=== PATIENT | female | born 1940 | race Caucasian/White ===

== ENCOUNTER 2018-06-13 11:28 | Inpatient (IN) | payer OTHER, MEDICARE ==
[~2018-06-13] VITALS: Ht 167.6 cm; Wt 80.1 kg
--- NOTE | 2018-06-13 11:41 | ED GENERAL ADULT ---
History of Present Illness General Chief Complaint: Palpitations Stated Complaint: RAPID AFIB Source: patient, EMS Exam Limitations: no limitations Vital Signs & Intake/Output Vital Signs & Intake/Output Vital Signs Date Time Temp Pulse Resp B/P B/P Pulse O2 O2 Flow FiO2 Mean Ox Delivery Rate 06/13 1156 97 Room Air Room Air 06/13 1149 98.1 06/13 1149 119 20 166/98 06/13 1135 119 20 166/98 97 Room Air Allergies Coded Allergies: No Known Allergies (06/13/18) Reconcile Medications Apixaban (Eliquis) 5 MG TABLET 1 TAB PO BID BLOOD THINNER (Reported) Cholecalciferol (Vitamin D3) 1,000 UNIT TABLET 1 TAB PO DAILY VITAMIN SUPPORT (Reported) Diltiazem HCl (Diltiazem 24HR ER) 240 MG CAP.ER.24H 1 CAP PO DAILY HEART ( Reported) Latanoprost 0.005 % DROPS 1 GTT OPH QPM EYE PROBLEMS (Reported) Triage Note: PT BIBA FROM HOME WHERE SHE FELT TIGHTNESS IN CHEST, RADIATING TO NECK. HX OF SAME WITH ONE CARDIOVERSION A YEAR AGO. PT DENIES CP, STATES TIGHTNESS. 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 DR MATOS AT BEDSIDE FOR EVALUATION Triage Nurses Notes Reviewed? yes HPI: Patient is a 77-year-old female with past medical history of paroxysmal atrial fibrillation status post cardioversion one year ago followed by Dr. Kahn from cardiology who presents today via EMS with repeat episode of atrial fibrillation with RVR. EMS obtained a cardiogram which confirmed this diagnosis this morning and administered intravenous metoprolol in route to the hospital, as they have no more diltiazem secondary to a national shortage. The patient is on diltiazem daily at home, recently increased to 240 mg daily. She reports some chest pressure at present. Heart rate between 100 - 120. Past History Travel History Traveled to [place] past 21 day No Medical History Any Pertinent Medical History? see below for history EENT: glaucoma Cardiovascular: A-FIB Musculoskeletal: osteoarthritis Surgical History Surgical History: non-contributory Psychosocial History What is your primary language Bulgarian Tobacco Use: Never used ETOH Use: occasional use Illicit Drug Use: denies illicit drug use Family History Hx Contributory? Yes Review of Systems Review of Systems Constitutional: Reports: see HPI. Denies: chills, diaphoresis, fever, malaise, weakness. EENTM: Reports: no symptoms. Respiratory: Reports: short of breath. Denies: cough, hemoptysis, orthopnea. Cardiovascular: Reports: chest pain. GI: Denies: nausea. Genitourinary: Reports: no symptoms. Musculoskeletal: Reports: no symptoms. Skin: Reports: no symptoms. Neurological/Psychological: Reports: no symptoms. Hematologic/Endocrine: Reports: no symptoms. Immunologic/Allergic: Reports: no symptoms. All Other Systems: Reviewed and Negative Physical Exam Physical Exam General Appearance: well developed/nourished, no apparent distress, alert, awake , anxious Comments: HEENT: Inspection of the head reveals a normocephalic cranium with no signs of trauma. Ophtho: Extraocular muscles are intact and pupils are equal and reactive to light bilaterally with no afferent pupillary defect. The sclera are noninjected , and there is no obvious discharge. Neck: The trachea is midline, there is no obvious asymmetry or mass over the thyroid, and there is no midline cervical spine tenderness Respiratory: The lungs are clear and equal to auscultation bilaterally without wheezes, rales, or rhonchi. The patient exhibits no signs of labored breathing. Cardiac: Irregularly irregular but without appreciable murmurs on auscultation. No obvious JVD. GI: Examination of the abdomen reveals no significant focal tenderness in any of the four quadrants. There is negative Roy's sign, negative McBurney's point tenderness, negative Esvin sign, negative Stout-Smith sign, and no signs of peritonitis whatsoever on percussion or deep palpation. The skin is intact with no sign of trauma or infection. : Deferred Neuro: The patient is oriented to person, place, time, and situation, with no obvious focal motor deficits. There were no sensory deficits, and the patient exhibit purposeful movement of all 4 extremities. Cranial nerves II through XII are intact, and gait is normal. Behavioral: Calm and cooperative Dermatologic: Dermatologic examination reveals no diffuse rashes or exanthems, no petechiae, no ecchymoses, and no other signs of erythema or infection. Core Measures ACS in differential dx? Yes CVA/TIA Diagnosis: No Sepsis Present: No Sepsis Focused Exam Completed? No Progress Differential Diagnoses I considered the following diagnoses in my evaluation of the patient: Paroxysmal atrial fibrillation, underlying acute coronary syndrome, holiday heart, electrolyte abnormality, hypercalcemia renal failure, multiple other metabolic or cardiac abnormalities possible Plan of Care: Orders Procedure Date/time Status PARTIAL THROMBOPLASTIN TIME 06/13 UNK Complete PROTHROMBIN TIME 06/13 UNK Complete Heart Healthy Diet 06/13 D Active ED Holding Orders 06/13 1427 Active Admit to inpatient 06/13 1427 Active Code Status 06/13 1427 Active Add-on Test (ER Only) 06/13 1224 Active TROPONIN LEVEL 06/13 1139 Complete COMPREHENSIVE METABOLIC PANEL 06/13 1139 Complete CBC WITHOUT DIFFERENTIAL 06/13 1139 Complete EKG 06/13 1129 Active Laboratory Tests 06/13/18 1214: Anion Gap 17 H, Estimated GFR > 60, BUN/Creatinine Ratio 43.3 H, Glucose 125 H, Calcium 10.7 H, Total Bilirubin 0.7, AST 26, ALT 25, Alkaline Phosphatase 100, Troponin I < 0.01, Total Protein 7.1, Albumin 4.8, Globulin 2.3, Albumin/ Globulin Ratio 2.1, CBC w Diff MAN DIFF ORDERED, RBC 5.25, MCV 89.4, MCH 29.9, MCHC 33.4, RDW 13.4, MPV 10.0, Gran % 56.1, Lymphocytes % 37.3, Monocytes % 5.7, Eosinophils % 0.1, Basophils % 0.8, Absolute Granulocytes 14.5 H, Absolute Lymphocytes 9.7 H, Absolute Monocytes 1.5 H, Absolute Eosinophils 0, Absolute Basophils 0.2, Platelet Estimate ADEQUATE, Normocytic RBCs VERIFIED, Normochromic RBCs VERIFIED 06/13/18 1000: PT 14.0 H, INR 1.28 H, APTT 32 Initial ED EKG: Initial ECG performed at 1134 hrs, interpreted at 1140 hrs. Atrial fibrillation with rapid ventricular rate varying between 73 and 106, average of 115. Frequent ectopy and PVCs. As compared to prior study from 07/2016, there is interval change to atrial for ablation from prior sinus rhythm. No obvious ischemic changes. Comments: Patient with history of paroxysmal atrial fibrillation requiring prior to cardioversion one year ago presented today in RVR again read she responded to a dosage of intravenous metoprolol and required further rate control here in the emergency department. She did not cardiovert spontaneously, and had a negative chest x-ray and troponin. Given her poor rate control and her ongoing symptoms, I feel that hospitalization is warranted. PATIENT: ADRIÁN DAVIS PRESENT AGE: 77 PATIENT ACCOUNT NO: [id number] : 38 LOCATION: [facility] ORDERING PHYSICIAN: Alex Matos DO SERVICE DATE: 06/13/18 EXAM TYPE: RAD - XRY-CHEST XRAY, TWO VIEWS EXAMINATION: XR CHEST CLINICAL INFORMATION: Chest pressure. Atrial fibrillation. COMPARISON: None TECHNIQUE: 2 views of the chest were obtained. FINDINGS: The cardiomediastinal silhouette is enlarged. Ectasia and tortuosity of the aorta is seen. Lungs bilaterally are symmetrically expanded. There is slight thickening of the central airways. No focal consolidation, effusion or pneumothorax is seen. Bony structures are unremarkable. IMPRESSION: 1. Enlarged cardiac mediastinal silhouette and ectatic aorta. 2. Slight thickening of the central airways. Findings may be related to reactive airways disease or bronchitis. 3. No focal pneumonia. DICTATED BY: Aby Barrientos MD DATE/TIME DICTATED:06/13/181242 HIDE CLEANER:JAG DATE/TIME TRANSCRIBED:06/13/181242 CONFIDENTIAL, DO NOT COPY WITHOUT APPROPRIATE AUTHORIZATION. <Electronically signed in Other Vendor System> SIGNED BY: Aby Barrientos MD 1248 Departure Departure Time of Disposition: 5 Disposition: STILL A PATIENT Condition: Stable Clinical Impression Primary Impression: Paroxysmal atrial fibrillation with RVR Departure Forms: Customer Survey General Discharge Information Admission Note Spoke With: Solo Degroot MD Documentation of Exam: Documentation of any treatments & extenuating circumstances including Concerns Regarding Discharge (functional status, medication knowledge or non-compliance, living conditions, etc.) that warrant an admission rather than observation: Patient presented today with interpretation with RVR. Attempts at rate control were somewhat successful but I feel that the patient will require further intravenous medication for further rate control. She may require electrical cardioversion as well after cardiology consultation. Furthermore, she has pronounced leukocytosis which is as of yet unexplained and I feel that she may require IV antibiotics. For these reasons, discharge home is not a safe option and hospitalization is warranted. Critical Care Note Critical Care Note Critical Care Time: non-applicable
[2018-06-13 12:30] LABS: ABSOLUTE BASOPHIL COUNT 0.2 /CUMM (0.0-0.2); ABSOLUTE EOSINOPHIL COUNT 0 /CUMM (0.0-0.7); ABSOLUTE GRANULOCYTE CT 14.5 /CUMM (1.4-6.5); ABSOLUTE LYMPH COUNT 9.7 /CUMM (1.2-3.4); ABSOLUTE MONOCYTE COUNT 1.5 /CUMM (0.10-0.60); BASOPHIL % 0.8 % (0.0-2.0); EOSINOPHIL % 0.1 % (0-5); GRANULOCYTE % 56.1 % (42.2-75.2); HEMATOCRIT 46.9 % (37-47); MEAN CORPUSCULAR HGB 29.9 PG (27.0-31.0); MEAN CORPUSCULAR HGB CONC 33.4 G/DL (33.0-37.0); MEAN CORPUSCULAR VOLUME 89.4 FL (81.0-99.0); PLATELET COUNT 304 /CUMM (130-400); RBC DISTRIBUTION WIDTH 13.4 % (11.5-14.5); RED BLOOD CELL CT 5.25 /CUMM (4.20-5.40); WHITE BLOOD CELL COUNT 25.9 /CUMM (4.8-10.8)
[2018-06-13] MEDS ORDERED: ELIQUIS5 M1 PO (12:37)
[2018-06-13] MEDS ORDERED: LATANOPROST2.5 ML OPH (12:37)
[2018-06-13] MEDS ORDERED: DILTIAZEM 24HR240 MG PO (12:37)
[2018-06-13] MEDS ORDERED: VITAMIN D31000 UNI2 PO (12:38)
--- NOTE | 2018-06-13 12:49 | RADIOLOGY REPORT ---
EXAMINATION: XR CHEST CLINICAL INFORMATION: Chest pressure. Atrial fibrillation. COMPARISON: None TECHNIQUE: 2 views of the chest were obtained. FINDINGS: The cardiomediastinal silhouette is enlarged. Ectasia and tortuosity of the aorta is seen. Lungs bilaterally are symmetrically expanded. There is slight thickening of the central airways. No focal consolidation, effusion or pneumothorax is seen. Bony structures are unremarkable. IMPRESSION: 1. Enlarged cardiac mediastinal silhouette and ectatic aorta. 2. Slight thickening of the central airways. Findings may be related to reactive airways disease or bronchitis. 3. No focal pneumonia.
[2018-06-13 12:59] LABS: PTT 32 SEC (25-37)
--- NOTE | 2018-06-13 14:53 | History & Physical ---
Faizan Macdonald MD 06/13/18 1452: General Information and HPI MD Statement: I have seen and personally examined ADRIÁN DAVIS and documented this H&P. The patient is a 77 year old F who presented with a patient stated chief complaint of abdominal and chest pain. Source of Information: patient, old records Exam Limitations: no limitations History of Present Illness: 77 year old female with past medical history significant for CLL and asymptomatic paroxysmal atrial fibrillation diagnosed in 09/2016 after routine evaluation for urinary tract infection s/p elective cardioversion in 10/2016 presents with complaints of abdominal bloating epigastric and chest tightness and was brought in by ambulance with rapid atrial fibrillation. The patient's symptoms started last night with bloating, feeling gaseous, like she need to belch. Her symptoms started abruptly, while at rest, sitting on the couch after dinner. She had difficulty describing the exact nature of the pain and denied any exacerbating or relieving factors. She did say that the pain was in her epigastric area radiating up through her chest into jaw and her back. She endorsed chest tightness, nausea, fatigue, and feeling light headed. She denied palpitations, vomiting, diaphoresis, or dyspnea. She slept poorly overnight and her symptoms persisted into this morning. She called her chain maker hand and had an appointment to be seen at 1PM, but her symptoms continued to worsen and she called an ambulance because she lives alone and felt scared. In the ambulance, she was noted to be in rapid atrial fibrillation and was given 10mg of IV metoprolol. Once in the ED, she was given an additional 50mg of oral metoprolol with an improved heart rate. Her first troponin was negative but she continued to feel unwell. She was admitted to telemetry for further monitoring of her tachycardia, ACS evaluation, cardiology consultation, and possible electrical cardioversion. The patient last saw Dr. Camacho on 05/25/18. He had increased her cardizem from 120mg to 240mg at that time and recommended cardioversion. She doesn't think she has ever had a stress test or a recent echocardiogram. She denied any history of previous heart attack. She says her thyroid function has always been normal. She denied a history of high blood pressure. She drinks 2 cups of tea daily and this has not changed recently and denies alcohol intake. She states a WBC in the 20,000 range is typical for her CLL. The patient states she has not had any fevers, chills, sick contacts, cough, sore throat, diarrhea, or dysuria, suggestive of infection. Review of systems is only notable other than previously mentioned for left knee pain from osteoarthritis. Allergies/Medications Allergies: Coded Allergies: No Known Allergies (06/13/18) Compliance With Home Meds: GOOD Past History Travel History Traveled to [place] past 21 day No Medical History EENT: glaucoma Cardiovascular: A-FIB Musculoskeletal: osteoarthritis Blood Disorders: CLL Cancer(s): CLL Surgical History Surgical History: D+C, bunionectomy, tonsillectomy Past Family/Social History Family History Relations & Conditions if any FATHER FH: renal cell carcinoma MOTHER FH: congestive heart failure FH: hearing loss BROTHER FH: gastric cancer FH: hearing loss Psychosocial History Primary Language: Moroccan Smoking Status: Never Smoked ETOH Use: denies use Illicit Drug Use: denies illicit drug use Functional Ability ADLs Independent: dressing, eating, toileting, bathing. Ambulation: independent IADLs Independent: shopping, housework, finances, food prep, telephone, transportation , medication admin. 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 Denies: chills, diaphoresis, fever. EENTM: Denies: nasal congestion, throat pain. Cardiovascular: Reports: chest pain. Denies: palpitations, peripheral edema. Respiratory: Denies: cough, short of breath, sputum production, wheezing. GI: Reports: abdominal pain, bloating, nausea. Denies: constipation, diarrhea, distention, melena, changes in stool, vomiting. Genitourinary: Denies: dysuria, frequency, pain. Musculoskeletal: Reports: joint pain. Skin: Reports: no symptoms. Neurological/Psychological: Reports: no symptoms. Hematologic/Endocrine: Reports: see HPI. Immunologic/Allergic: Reports: no symptoms. All Other Systems: Reviewed and Negative Exam & Diagnostic Data Last 24 Hrs of Vital Signs/I&O Vital Signs Date Time Temp Pulse Resp B/P B/P Pulse O2 O2 Flow FiO2 Mean Ox Delivery Rate 06/13 1525 97.8 88 18 164/90 95 Room Air 06/13 1156 97 Room Air Room Air 06/13 1149 98.1 06/13 1149 119 20 166/98 06/13 1135 119 20 166/98 97 Room Air Intake & Output 06/13 1600 06/13 0800 06/13 0000 Intake Total 1000 Output Total Balance 1000 Intake, IV 1000 Physical Exam General Appearance Alert, Oriented X3, Cooperative, No Acute Distress Cardiovascular No Murmurs, irregular rhythm Lungs Clear to Auscultation, Normal Air Movement Abdomen Normal Bowel Sounds, Soft, No Tenderness, No Masses Extremities No Clubbing, No Cyanosis, No Edema, Normal Pulses Last 24 Hrs of Labs/Julien: Laboratory Tests 06/13/18 1214: Anion Gap 17 H, Estimated GFR > 60, BUN/Creatinine Ratio 43.3 H, Glucose 125 H, Calcium 10.7 H, Total Bilirubin 0.7, AST 26, ALT 25, Alkaline Phosphatase 100, Troponin I < 0.01, Total Protein 7.1, Albumin 4.8, Globulin 2.3, Albumin/ Globulin Ratio 2.1, CBC w Diff MAN DIFF ORDERED, RBC 5.25, MCV 89.4, MCH 29.9, MCHC 33.4, RDW 13.4, MPV 10.0, Gran % 56.1, Lymphocytes % 37.3, Monocytes % 5.7, Eosinophils % 0.1, Basophils % 0.8, Absolute Granulocytes 14.5 H, Absolute Lymphocytes 9.7 H, Absolute Monocytes 1.5 H, Absolute Eosinophils 0, Absolute Basophils 0.2, Platelet Estimate ADEQUATE, Normocytic RBCs VERIFIED, Normochromic RBCs VERIFIED 06/13/18 1000: PT 14.0 H, INR 1.28 H, APTT 32 Diagnostic Data EKG Results irregular rhythm with PVCs, no ischemic changes Assessment/Plan Assessment: 77 year old female with PMH of CLL and paroxysmal atrial fibrillation previously cardioverted in 10/2016 presents with complaints of epigastric pain and chest tightness and admitted to telemetry for rapid atrial fibrillation. Atrial fibrillation with rapid ventricular response: HR 100s-130s in the ED Received IV metoprolol and 50mg PO metoprolol in the ED Monitor on telemetry Continue home medications of cardizem 240mg and eliquis 5mg po bid Cardiology consultation with Dr. Camacho's group Start metoprolol 50mg po bid for rate control Check TSHR NPO in AM for possible cardioversion Atypical chest pain: Check serial troponins/EKG to rule out acute coronary syndrome Tylenol and morphine prn for analgesia GI cocktail x 1 and zofran prn for nausea Consider echocardiogram to evaluate for regional wall motion abnormalities If troponins become abnormal, add high intensity statin and aspirin CLL: Monitor leukocytosis No evidence of infection, chest x-ray negative, no symptoms of infection ( dysuria/cough) Heart healthy diet, NPO in the morning DVT ppx-eliquis Full code As Ranked By This Provider Problem List: 1. Paroxysmal atrial fibrillation with RVR Core Measures/Misc (08/06) Acute Coronary Syndrome ACS Diagnosis: No Congestive Heart Failure Congestive Heart Failure Diagnosis No Cerebrovascular Accident CVA/TIA Diagnosis: No VTE (View Protocol) VTE Risk Factors Age>40 No Mechanical VTE Prophylaxis d/t N/A MechProphylax Ordered No VTE Pharm Prophylaxis d/t NA PharmProphylax ordered Sepsis (View protocol) Sepsis Present: No If YES complete Sepsis Event Note If YES complete Sepsis Event Note Rafal Pedroza 06/13/18 1545: General Information and HPI Allergies/Medications Home Med list Amiodarone (Cordarone) 200 MG TAB 1 TAB PO DAILY Atrial Fibrillation Apixaban (Eliquis) 5 MG TABLET 1 TAB PO BID BLOOD THINNER (Reported) Cholecalciferol (Vitamin D3) 1,000 UNIT TABLET 1 TAB PO DAILY VITAMIN SUPPORT (Reported) Diltiazem HCl (Diltiazem 24HR ER) 240 MG CAP.ER.24H 1 CAP PO DAILY HEART ( Reported) Latanoprost 0.005 % DROPS 1 GTT OPH QPM EYE PROBLEMS (Reported) Metoprolol Tartrate 25 MG TABLET 1 TAB PO BID Atrial Fibrillation Core Measures/Misc (08/06) Sepsis (View protocol) If YES complete Sepsis Event Note If YES complete Sepsis Event Note Attending MD Review Statement Attending Statement Attending MD Statement: examined this patient, discuss w/resident/PA/JAVA TECH LEAD, agreed w/resident/PA/JAVA TECH LEAD, reviewed EMR data (avail) Attending Assessment/Plan: 77 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 Pt got iv metoprolol on route by EMS and in ER was given another 50mg po metoprolol. Pt gives some history of epigastric area discomfort since last night but denies any chest pain or sob. No prior h/o cad or SD or stroke. Afib with RVR- we will monitor the pt on tele , pt already took her cardizem in am and was given 50mg po metoprolol in ER and iv metoprolol by EMS. her HR is ranging from 100-130 currently with few PVCs. Will get cardiology consult and see if she would need cardioversion. May keep her npo past mindnight in case she needs cardioversion. Epigastric discomfort- could be atypical presentation of coronary event. will do serial trop and monitor her on tele. d/w pt the care plan.
--- NOTE | 2018-06-13 15:43 | Admission Certification ---
Admission Certification Certification Statement - As attending physician, I certify that at the time of - admission, based on clinical presentation, severity of - symptoms, need for further diagnostic testing and - therapeutic interventions, and risk of adverse outcomes - without in-hospital treatment, in my clinical assessment, - this patient requires an acute hospital stay for a minimum - of two nights or longer. I have also considered psychsocial - factors such as support system, advanced age, financial - issues, cognitive issues, and failed out-patient treatments, - past re-admission history, safety of patient, and lack of - compliance as applicable. Specific rationale supporting this admission is: afib with RVR and chest/epigastric tightness
[2018-06-14 06:11] LABS: ABSOLUTE BASOPHIL COUNT 0.2 /CUMM (0.0-0.2); ABSOLUTE EOSINOPHIL COUNT 0.1 /CUMM (0.0-0.7); ABSOLUTE GRANULOCYTE CT 11.5 /CUMM (1.4-6.5); ABSOLUTE LYMPH COUNT 15.5 /CUMM (1.2-3.4); ABSOLUTE MONOCYTE COUNT 2.3 /CUMM (0.10-0.60); BASOPHIL % 0.7 % (0.0-2.0); EOSINOPHIL % 0.3 % (0-5); GRANULOCYTE % 38.8 % (42.2-75.2); MEAN CORPUSCULAR HGB 30.2 PG (27.0-31.0); MEAN CORPUSCULAR HGB CONC 32.9 G/DL (33.0-37.0); MEAN CORPUSCULAR VOLUME 91.6 FL (81.0-99.0); MEAN PLATELET VOLUME 9.6 FL (7.4-10.4); PLATELET COUNT 297 /CUMM (130-400); RBC DISTRIBUTION WIDTH 13.3 % (11.5-14.5); WHITE BLOOD CELL COUNT 29.5 /CUMM (4.8-10.8)
--- NOTE | 2018-06-14 07:12 | PN- Housestaff ---
Salas Nicole 06/14/18 0712: Subjective Follow-up For: Atrial fibrillation with RVR CLL with Leukocytosis Tele-Events Since Last Visit: a-Fib rates 80s-90s Subjective: Patient seen and examined at bedside this morning in the ER room 2. Patient is no longer n.p.o. S LISSA/cardioversion has been moved to tomorrow. Patient was able to eat breakfast with no significant complaints. However she noted that yesterday she had one episode of vomiting and one loose stool. Denies any chest pain, palpitations, shortness of breath, nausea, vomiting or abdominal pain today. Patient will have transthoracic echocardiogram today. We will continue to control rate and monitor patient. Review of Systems Constitutional: Denies: see HPI. Objective Last 24 Hrs of Vital Signs/I&O Vital Signs Date Time Temp Pulse Resp B/P B/P Pulse O2 O2 Flow FiO2 Mean Ox Delivery Rate 06/14 0920 97.9 82 20 136/56 06/14 0919 82 20 136/56 98 Room Air 06/14 0603 97.9 64 20 139/54 95 Room Air 06/13 2233 92 120/55 06/13 2112 99.0 92 20 120/55 91 Room Air 06/13 1906 97.8 60 18 140/82 98 Room Air 06/13 1525 97.8 88 18 164/90 95 Room Air 06/13 1156 97 Room Air Room Air 06/13 1149 98.1 06/13 1149 119 20 166/98 06/13 1135 119 20 166/98 97 Room Air Physical Exam General Appearance: Alert, Oriented X3, Cooperative, No Acute Distress Skin: No Rashes, No Breakdown HEENT: PERRLA, EOMI, Mucous Membr. moist/pink Cardiovascular: Regular Rate, Normal S1, Normal S2, irregular rythm with ventricular rate around 80;1/6 asystolic murmur Lungs: Clear to Auscultation, Normal Air Movement Abdomen: Normal Bowel Sounds, Soft, No Tenderness Neurological: Normal Speech, Strength at 5/5 X4 Ext, Normal Tone, Cranial Nerves 3-12 NL, Reflexes 2+ Extremities: No Clubbing, No Cyanosis Vascular: Normal Pulses, Pulses Symmetrical Current Medications: Current Medications Sig/Harjinder Start time Last Medication Dose Route Stop Time Status Admin Acetaminophen 650 MG Q6P PRN 06/13 1545 AC PO Amiodarone HCl 200 MG DAILY 06/16 0900 AC PO Amiodarone HCl 200 MG BID 06/14 1045 AC PO 06/15 2101 Apixaban 5 MG BID 06/13 2100 AC 06/14 PO 919 Diltiazem HCl 240 MG DAILY 06/14 0900 AC 06/14 PO 919 Metoprolol Tartrate 25 MG BID 06/14 2100 AC PO Metoprolol Tartrate 0 .STK-MED ONE 06/13 2152 DC PO Metoprolol Tartrate 50 MG BID 06/13 2100 DC 06/14 PO 09 Metoprolol Tartrate 0 .STK-MED ONE 06/13 1149 DC PO Metoprolol Tartrate 50 MG ONCE ONE 06/13 1145 DC 06/13 PO 06/13 1146 1149 Morphine Sulfate 2 MG Q4P PRN 06/13 1545 AC IV Ondansetron HCl 0 .STK-MED ONE 06/13 2029 DC .ROUTE Ondansetron HCl 4 MG Q6P PRN 06/13 1615 AC 06/13 IV 203 Sodium Chloride 1,000 ML BOLUS ONE 06/13 1145 DC 06/13 IV 06/13 1244 1205 Last 24 Hrs of Lab/Julien Results Last 24 Hrs of Labs/Mics: Laboratory Tests 06/14/18 0555: Anion Gap 9, Estimated GFR > 60, BUN/Creatinine Ratio 40.0 H, Magnesium 2.2, Troponin I < 0.01, TSH &T3 &Free T4 Intrp 0.899, CBC w Diff MAN DIFF ORDERED, RBC 4.70, MCV 91.6, MCH 30.2, MCHC 32.9 L, RDW 13.3, MPV 9.6, Gran % 38.8 L, Lymphocytes % 52.4 H, Monocytes % 7.8, Eosinophils % 0.3, Basophils % 0.7, Absolute Granulocytes 11.5 H, Segmented Neutrophils 31 L, Band Neutrophils 1, Absolute Lymphocytes 15.5 H, Lymphocytes 62 H, Monocytes 6, Absolute Monocytes 2.3 H, Absolute Eosinophils 0.1, Absolute Basophils 0.2, Platelet Estimate ADEQUATE, Hypochromic-Microcytic 1+, Ovalocytes FEW, Stomatocytes FEW, Fld Total RBCs Counted 100 06/13/187: Troponin I < 0.01 06/13/18 1214: Anion Gap 17 H, Estimated GFR > 60, BUN/Creatinine Ratio 43.3 H, Glucose 125 H, Calcium 10.7 H, Total Bilirubin 0.7, AST 26, ALT 25, Alkaline Phosphatase 100, Troponin I < 0.01, Total Protein 7.1, Albumin 4.8, Globulin 2.3, Albumin/ Globulin Ratio 2.1, CBC w Diff MAN DIFF ORDERED, RBC 5.25, MCV 89.4, MCH 29.9, MCHC 33.4, RDW 13.4, MPV 10.0, Gran % 56.1, Lymphocytes % 37.3, Monocytes % 5.7, Eosinophils % 0.1, Basophils % 0.8, Absolute Granulocytes 14.5 H, Absolute Lymphocytes 9.7 H, Absolute Monocytes 1.5 H, Absolute Eosinophils 0, Absolute Basophils 0.2, Platelet Estimate ADEQUATE, Normocytic RBCs VERIFIED, Normochromic RBCs VERIFIED Microbiology 06/13 2058 STOOL: Clostridium difficile Toxin A & B - COLB Assessment/Plan Assessment: Patient is a 77-year-old female who is 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 On day of admission patient called ambulance because she lived alone and felt scared. Patient was given 10 mg of IV metoprolol in the ambulance. Given additional 50 mg of oral metoprolol with improved heart rate in the ED. patient admitted to the telemetry for further monitoring of tachycardia, rule out ACS, cardiology consultation. Patient's troponins have been negative with no significant ST changes on EKG. patient last saw her corrugator supervisor Dr. Kahn on 05/25/18. At that time her Cardizem was increased from 120 to 240 mg and cardioversion was recommended. Patient has been seen by Dr. Jorge Alberto Lrod in the ER and advised to have a repeat ECHO done today and follow up with LISSA/ Cardioveresion tomorrow (06/15/18). Problem list: 1. Atrial fibrillation with RVR 2. CLL with leukocytosis Plan: * Patient seen and evaluated by cardiology Jorge Alberto Lord MD * Plan to have LISSA guided cardioversion tomorrow, 06/15/2018; n.p.o. after midnight * Added amiodarone 200 mg twice daily today and tomorrow, thereafter decreasing to 200 mg once a day in order to improve successful cardioversion and retain sinus rhythm as per cardiology * Metoprolol tartrate decreased to 25 mg twice daily * Continue Eliquis * Monitor patient [facility] for changes in her CLL diagnosis * Follow-up echocardiogram CODE STATUS: Full code Diet: Heart healthy/n.p.o. after midnight DVT prophylaxis: Eliquis Problem List: 1. Paroxysmal atrial fibrillation with RVR Pain Ratin Pain Location: chest discomfort Pain Goal: Remain pain free Pain Plan: as per pain pathway Tomorrow's Labs & Rationales: cbc bep Rafal Pedroza 06/14/18 1242: Attending MD Review Statement Attending Statement Attending MD Statement: examined this patient, discuss w/resident/PA/SIDE GLUER, agreed w/resident/PA/SIDE GLUER, reviewed EMR data (avail), discussed with nursing, discussed with case mgmt Attending Assessment/Plan: afib with rvr- pt currently is rate controlled. Pt is planned for LISSA/ Cardioversion tomorrow per cardiology which pt is going to discuss with them . currently on cardizem 240 and metoprolol 50mg po bid. Started on amiodarone per cardiology. Pt will be kept npo past midnight for the procedure. d/w pt the care plan.
--- NOTE | 2018-06-14 08:26 | Cons- Cardiology ---
General Information and HPI Consulting Request Date of Consult: 06/13/18 Requested By: Rafal Pedroza MD Reason for Consult: Atrial fibrillation Source of Information: patient, old records Exam Limitations: patient's age History of Present Illness: 77 year old female with past medical history significant for CLL and asymptomatic paroxysmal atrial fibrillation diagnosed in 09/2016 after routine evaluation for urinary tract infection s/p elective cardioversion in 10/2016 presents with complaints of abdominal bloating epigastric and chest tightness and was brought in by ambulance with rapid atrial fibrillation. The patient's symptoms started last night with bloating, feeling gaseous, like she need to belch. Her symptoms started abruptly, while at rest, sitting on the couch after dinner. She had difficulty describing the exact nature of the pain and denied any exacerbating or relieving factors. She did say that the pain was in her epigastric area radiating up through her chest into jaw and her back. She endorsed chest tightness, nausea, fatigue, and feeling light headed. She denied palpitations, vomiting, diaphoresis, or dyspnea. She slept poorly overnight and her symptoms persisted into this morning. She called her resource engineer and had an appointment to be seen at 1PM, but her symptoms continued to worsen and she called an ambulance because she lives alone and felt scared. In the ambulance, she was noted to be in rapid atrial fibrillation and was given 10mg of IV metoprolol. Once in the ED, she was given an additional 50mg of oral metoprolol with an improved heart rate. Her first troponin was negative but she continued to feel unwell. She was admitted to telemetry for further monitoring of her tachycardia, ACS evaluation, cardiology consultation, and possible electrical cardioversion. The patient last saw Dr. Camacho on 05/25/18. He had increased her cardizem from 120mg to 240mg at that time and recommended cardioversion. She doesn't think she has ever had a stress test or a recent echocardiogram. She denied any history of previous heart attack. She says her thyroid function has always been normal. She denied a history of high blood pressure. She drinks 2 cups of tea daily and this has not changed recently and denies alcohol intake. She states a WBC in the 20,000 range is typical for her CLL. The patient states she has not had any fevers, chills, sick contacts, cough, sore throat, diarrhea, or dysuria, suggestive of infection. Review of systems is only notable other than previously mentioned for left knee pain from osteoarthritis. The above information was obtained by the admitting resident. The patient was told on a routine visit to a resource engineer that she was in atrial fibrillation and was totally on unaware of it. Apparently a discussion was held of repeat cardioversion. Meanwhile hold the diltiazem was increased from 120-240 mg a day. She has felt well until yesterday when she had this abdominal discomfort lasting for several hours. This happened while she was sitting on the couch. Functional activities usually home chores and lives alone and is no formal exercise. Usually she has no unusual shortness of breath chest pain syncope or presyncope. Allergies/Medications Allergies: Coded Allergies: No Known Allergies (06/13/18) Home Med List: Apixaban (Eliquis) 5 MG TABLET 1 TAB PO BID BLOOD THINNER (Reported) Cholecalciferol (Vitamin D3) 1,000 UNIT TABLET 1 TAB PO DAILY VITAMIN SUPPORT (Reported) Diltiazem HCl (Diltiazem 24HR ER) 240 MG CAP.ER.24H 1 CAP PO DAILY HEART ( Reported) Latanoprost 0.005 % DROPS 1 GTT OPH QPM EYE PROBLEMS (Reported) Current Medications: Current Medications Sig/Harjinder Start time Last Medication Dose Route Stop Time Status Admin Acetaminophen 650 MG Q6P PRN 06/13 1545 AC PO Apixaban 5 MG BID 06/13 2100 AC 06/13 PO 2232 Diltiazem HCl 240 MG DAILY 06/14 0900 AC PO Metoprolol Tartrate 0 .STK-MED ONE 06/13 2152 DC PO Metoprolol Tartrate 50 MG BID 06/13 2100 AC 06/13 PO 223 Metoprolol Tartrate 0 .STK-MED ONE 06/13 1149 DC PO Metoprolol Tartrate 50 MG ONCE ONE 06/13 1145 DC 06/13 PO 06/13 1146 1149 Morphine Sulfate 2 MG Q4P PRN 06/13 1545 AC IV Ondansetron HCl 0 .STK-MED ONE 06/13 202 DC .ROUTE Ondansetron HCl 4 MG Q6P PRN 06/13 1615 AC 06/13 IV 203 Sodium Chloride 1,000 ML BOLUS ONE 06/13 1145 DC 06/13 IV 06/13 1244 1205 Review of Systems Review of Systems Constitutional: Reports: see HPI. EENTM: Denies: no symptoms. Cardiovascular: Reports: see HPI. Respiratory: Reports: see HPI. GI: Reports: see HPI. Genitourinary: Denies: no symptoms. Musculoskeletal: Denies: no symptoms. Skin: Denies: no symptoms. Neurological/Psychological: Denies: no symptoms. Hematologic/Endocrine: Reports: see HPI. Immunologic/Allergic: Denies: no symptoms. Past History Travel History Traveled to [place] past 21 day No Medical History EENT: glaucoma Cardiovascular: A-FIB Musculoskeletal: osteoarthritis Blood Disorders: CLL Cancer(s): CLL Surgical History Surgical History: D+C, bunionectomy, tonsillectomy Family History Relations & Conditions If Any: FATHER FH: renal cell carcinoma MOTHER FH: congestive heart failure FH: hearing loss BROTHER FH: gastric cancer FH: hearing loss Psychosocial History Primary Language: Faroese Smoking Status: Never Smoked ETOH Use: denies use Illicit Drug Use: denies illicit drug use Functional Ability ADLs Independent: dressing, eating, toileting, bathing. Ambulation: independent IADLs Independent: shopping, housework, finances, food prep, telephone, transportation , medication admin. 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 Exam & Diagnostic Data Vital Signs and I&O Vital Signs Date Time Temp Pulse Resp B/P B/P Pulse O2 O2 Flow FiO2 Mean Ox Delivery Rate 06/14 0603 97.9 64 20 139/54 95 Room Air 06/13 2233 92 120/55 06/13 2112 99.0 92 20 120/55 91 Room Air 06/13 1906 97.8 60 18 140/82 98 Room Air 06/13 1525 97.8 88 18 164/90 95 Room Air 06/13 1156 97 Room Air Room Air 06/13 1149 98.1 06/13 1149 119 20 166/98 06/13 1135 119 20 166/98 97 Room Air Intake & Output 06/14 1600 06/14 0806/14 0000 06/13 1600 06/13 0806/13 0000 Intake Total 1000 Output Total Balance 1000 Intake, IV 1000 Physical Exam: General exam patient appeared very comfortable. Head normocephalic atraumatic Eyes sclera anicteric conjunctiva showed no pallor extra ocular muscles were normal Neck no jugular venous distention no thyroid masses no palpable nodes Chest lungs were clear bilaterally Heart irregular rhythm with a ventricular rate around 80 1/6 systolic murmur Abdomen soft no organomegaly bowel sounds normal Extremities no clubbing cyanosis or edema Neurological no gross motor or sensory deficits Labs/Julien Results: Laboratory Tests 06/14 06/13 0561 1537 Chemistry Sodium (137 - 145 mmol/L) 143 Potassium (3.5 - 5.1 mmol/L) 5.0 Chloride (98 - 107 mmol/L) 105 Carbon Dioxide (22 - 30 mmol/L) 28 Anion Gap (5 - 16) 9 BUN (7 - 17 mg/dL) 28 H Creatinine (0.5 - 1.0 mg/dL) 0.7 Estimated GFR (>60 ml/min) > 60 BUN/Creatinine Ratio (7 - 25 %) 40.0 H Magnesium (1.6 - 2.3 mg/dL) 2.2 Troponin I (< 0.11 ng/ml) < 0.01 < 0.01 TSH &T3 &Free T4 Intrp (0.270 - 4.20 uIU/mL) 0.899 Hematology CBC w Diff MAN DIFF ORDERED WBC (4.8 - 10.8 /CUMM) 29.5 H RBC (4.20 - 5.40 /CUMM) 4.70 Hgb (12.0 - 16.0 G/DL) 14.2 Hct (37 - 47 %) 43.0 MCV (81.0 - 99.0 FL) 91.6 MCH (27.0 - 31.0 PG) 30.2 MCHC (33.0 - 37.0 G/DL) 32.9 L RDW (11.5 - 14.5 %) 13.3 Plt Count (130 - 400 /CUMM) 297 MPV (7.4 - 10.4 FL) 9.6 Gran % (42.2 - 75.2 %) 38.8 L Lymphocytes % (20.5 - 51.1 %) 52.4 H Monocytes % (1.7 - 9.3 %) 7.8 Eosinophils % (0 - 5 %) 0.3 Basophils % (0.0 - 2.0 %) 0.7 Absolute Granulocytes (1.4 - 6.5 /CUMM) 11.5 H Segmented Neutrophils (42.2 - 75.2 %) 31 L Band Neutrophils (0.0 - 5.0 %) 1 Absolute Lymphocytes (1.2 - 3.4 /CUMM) 15.5 H Lymphocytes (20.5 - 51.1 %) 62 H Monocytes (1.7 - 9.3 %) 6 Absolute Monocytes (0.10 - 0.60 /CUMM) 2.3 H Absolute Eosinophils (0.0 - 0.7 /CUMM) 0.1 Absolute Basophils (0.0 - 0.2 /CUMM) 0.2 Platelet Estimate (ADEQUATE) ADEQUATE Hypochromic-Microcytic 1+ Ovalocytes FEW Stomatocytes FEW Other Body Source Fld Total RBCs Counted (%) 100 06/13 06/13 1214 UNK Chemistry Sodium (137 - 145 mmol/L) 141 Potassium (3.5 - 5.1 mmol/L) 4.6 Chloride (98 - 107 mmol/L) 102 Carbon Dioxide (22 - 30 mmol/L) 23 Anion Gap (5 - 16) 17 H BUN (7 - 17 mg/dL) 26 H Creatinine (0.5 - 1.0 mg/dL) 0.6 Estimated GFR (>60 ml/min) > 60 BUN/Creatinine Ratio (7 - 25 %) 43.3 H Glucose (65 - 99 mg/dL) 125 H Calcium (8.4 - 10.2 mg/dL) 10.7 H Total Bilirubin (0.2 - 1.3 mg/dL) 0.7 AST (14 - 36 U/L) 26 ALT (9 - 52 U/L) 25 Alkaline Phosphatase (<127 U/L) 100 Troponin I (< 0.11 ng/ml) < 0.01 Total Protein (6.3 - 8.2 g/dL) 7.1 Albumin (3.5 - 5.0 g/dL) 4.8 Globulin (1.9 - 4.2 gm/dL) 2.3 Albumin/Globulin Ratio (1.1 - 2.2 %) 2.1 Coagulation PT (9.4 - 12.5 SEC) 14.0 H INR (0.90 - 1.19) 1.28 H APTT (25 - 37 SEC) 32 Hematology CBC w Diff MAN DIFF ORDERED WBC (4.8 - 10.8 /CUMM) 25.9 H RBC (4.20 - 5.40 /CUMM) 5.25 Hgb (12.0 - 16.0 G/DL) 15.7 Hct (37 - 47 %) 46.9 MCV (81.0 - 99.0 FL) 89.4 MCH (27.0 - 31.0 PG) 29.9 MCHC (33.0 - 37.0 G/DL) 33.4 RDW (11.5 - 14.5 %) 13.4 Plt Count (130 - 400 /CUMM) 304 MPV (7.4 - 10.4 FL) 10.0 Gran % (42.2 - 75.2 %) 56.1 Lymphocytes % (20.5 - 51.1 %) 37.3 Monocytes % (1.7 - 9.3 %) 5.7 Eosinophils % (0 - 5 %) 0.1 Basophils % (0.0 - 2.0 %) 0.8 Absolute Granulocytes (1.4 - 6.5 /CUMM) 14.5 H Absolute Lymphocytes (1.2 - 3.4 /CUMM) 9.7 H Absolute Monocytes (0.10 - 0.60 /CUMM) 1.5 H Absolute Eosinophils (0.0 - 0.7 /CUMM) 0 Absolute Basophils (0.0 - 0.2 /CUMM) 0.2 Platelet Estimate (ADEQUATE) ADEQUATE Normocytic RBCs VERIFIED Normochromic RBCs VERIFIED Diagnostic Data EKG Results Atrial fibrillation with the ventricular rate around 80 and PVCs some poor R- wave progression CXR Results 1. Enlarged cardiac mediastinal silhouette and ectatic aorta. 2. Slight thickening of the central airways. Findings may be related to reactive airways disease or bronchitis. 3. No focal pneumonia. Assessment/Plan Assessment/Plan In summary this 77-year-old female was admitted with the following problems 1. Abdominal pain was nonspecific. Prolonged discomfort without objective evidence of ischemia electrocardiographically or by enzymes suggest noncardiac origin. This is improved over time with GI cocktail and Zofran. 2. Atrial fibrillation. The patient had a new onset atrial fibrillation in October 2016 and had one electrical cardioversion. Apparently on visiting her primary resource engineer in the office for routine visit she was detected to have recurrent atrial fibrillation although she was asymptomatic. Repeat cardioversion was proposed at that time. Yesterday morning after having some abdominal discomfort, she was alarmed and came to the hospital and a ventricular rate was rapid. This slowed down after her abdominal discomfort improved and she is comfortable. However she was expecting to have electrical cardioversion. We will plan LISSA guided cardioversion tomorrow. I would add amiodarone 200 mg twice a day today and tomorrow, thereafter decreasing to 200 mg once a day in order to improve success of cardioversion and retain her in sinus rhythm. With the addition of amiodarone I would decrease metoprolol tartrate to 25 mg twice a day. This was discussed with her elaborately. She understands the side effects of amiodarone. However being her second DC version I would suggest adding medications for greater success of rhythm control strategy. I do not feel she is a usual candidate for atrial fibrillation ablation. Continue anticoagulation. 3. Chronic lymphocytic leukemia. I would suggest keeping her n.p.o. after midnight tonight, obtaining an echocardiogram today, checking an abdominal ultrasound to rule out any abdominal pathology today. Detailed discussion was carried on with the patient with all options including discharge with rate control strategy as an outpatient. Consult Acknowledgment - Thank you for your consult request.
[2018-06-14 14:52] VITALS: BP 122/72
[2018-06-14 22:24] VITALS: BP 138/88
[2018-06-15 06:28] VITALS: BP 128/70
--- NOTE | 2018-06-15 07:07 | PN- Housestaff ---
Salas Nicole 06/15/18 0706: Subjective Follow-up For: Atrial Fibrillation RVR CLL with Leukocytosis Tele-Events Since Last Visit: This morning patient was in atrial fibrillation with rates in the 60s-80s prior to LISSA/cardioversion Subjective: Patient seen and examined bedside this morning. Patient is status post LISSA/ cardioversion this morning. Patient has been in sinus rhythm and rates in the 80s. She was successfully cardioverted from A. fib to sinus rhythm using 150 J of synchronized energy. LISSA did not demonstrate any evidence of intracardiac thrombus. Patient denies any chest pain, palpitations, shortness of breath, abdominal pain this morning. Review of Systems Constitutional: Denies: see HPI. Objective Last 24 Hrs of Vital Signs/I&O Vital Signs Date Time Temp Pulse Resp B/P B/P Pulse O2 O2 Flow FiO2 Mean Ox Delivery Rate 06/15 1015 70 130/70 06/15 1015 70 130/70 06/15 0628 98.4 53 20 128/70 96 Room Air 06/14 2224 98.5 100 20 138/88 94 06/14 2043 62 122/72 06/14 2042 62 122/72 06/14 1452 98.7 62 18 122/72 96 Room Air 06/14 1334 98.0 61 18 104/49 97 Room Air 06/14 1209 97.9 82 20 136/56 Intake & Output 06/15 1600 06/15 0800 06/15 0000 Intake Total 400 Output Total Balance 400 Intake, Oral 400 Patient 177 lb Weight Physical Exam General Appearance: Alert, Oriented X3, Cooperative Skin: No Rashes, No Breakdown Cardiovascular: Regular Rate, Normal S1, Normal S2 Lungs: Clear to Auscultation, Normal Air Movement Abdomen: Normal Bowel Sounds, Soft, No Tenderness Neurological: Normal Speech, Strength at 5/5 X4 Ext, Normal Tone, Sensation Intact, Reflexes 2+ Extremities: No Clubbing, No Cyanosis, No Edema Assessment/Plan Assessment: 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 On day of admission patient called ambulance because she lived alone and felt scared. Patient was given 10 mg of IV metoprolol in the ambulance. Given additional 50 mg of oral metoprolol with improved heart rate in the ED. patient admitted to the telemetry for further monitoring of tachycardia, rule out ACS, cardiology consultation. Patient's troponins have been negative with no significant ST changes on EKG. patient last saw her security system administrator Dr. Kahn on 05/25/18. At that time her Cardizem was increased from 120 to 240 mg and cardioversion was recommended. Patient has been seen by Dr. Jorge Alberto Lord in the ER and advised to have a repeat ECHO done today and follow up with LISSA/ Cardioveresion 06/15/18. Status Post Successful LISSA/Cardioversion by Dr. Rose today 06/15/18. Problem list: 1. Atrial fibrillation with RVR 2. CLL with leukocytosis Plan: * Patient seen and evaluated by cardiology Jorge Alberto Lord MD * sucessful LISSA/Cardioversion patient in sinus rhythm from atrial fibrillation * Day 2 amiodarone 200 mg twice daily; thereafter decreasing to 200 mg once a day in order to improve successful cardioversion and retain sinus rhythm as per cardiology * Metoprolol tartrate decreased to 25 mg twice daily yesterday * Continue Eliquis without interruption * Cardizem 240 continued * F/U ECHO * Monitor patient CBC for changes in her CLL diagnosis CODE STATUS: Full code Diet: Heart healthy DVT prophylaxis: Eliquis Problem List: 1. 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 Pt got iv metoprolol on route by EMS and in ER was given another 50mg po metoprolol. Pt gives some history of epigastric area discomfort since last night but denies any chest pain or sob. No prior h/o cad or [place] or stroke. Afib with RVR- on amiodarone, cardizme and metoprolo currently. pt undergoing cardioversion today. will f/u on cardio recommendations post cardioversion and possible dc tomorrow.
[2018-06-15] MEDS ORDERED: AMIODARONE HCL200 M1 PO ×2 (07:42→13:05)
[2018-06-15] MEDS ORDERED: METOPROLOL TART25 M1 PO ×2 (07:42→13:05)
--- NOTE | 2018-06-15 07:50 | Patient Discharge Instructions ---
Discharge Instructions General Discharge Information You were seen/treated for: Atrial Fibrillation RVR You had these procedures: LISSA/Cardioversion Watch for these problems: Chest Pain, Palpitations, Shortness of Breath, Nausea, Vomiting, Diophoresis Special Instructions: Please follow up with your PCP within 1-2 weeks of discharge. 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 Diet Continue normal diet: Yes Acute Coronary Syndrome Inclusion Criteria At DC or during hospital stay patient has or had the following: ACS DIAGNOSIS No Discharge Core Measures Meds if any: Prescribed or Continued at Discharge Meds if any: NOT Prescribed or Continued at Discharge Congestive Heart Failure Inclusion Criteria At DC or during hospital stay patient has or had the following: CHF DIAGNOSIS No Discharge Core Measures Meds if any: Prescribed or Continued at Discharge Meds if any: NOT Prescribed or Continued at Discharge Cerebrovascular accident Inclusion Criteria At DC or during hospital stay patient has or had the following: CVA/TIA Diagnosis No Discharge Core Measures Meds if any: Prescribed or Continued at Discharge Meds if any: NOT Prescribed or Continued at Discharge Venous thromboembolism Inclusion Criteria VTE Diagnosis No VTE Type NONE VTE Confirmed by (Test) NONE Discharge Core Measures - Per Current guidelines, there needs to be overlap - treatment for the first 5 days of Warfarin therapy. - If discharged on Warfarin prior to 5 days of - overlap therapy, the patient will need to be - assessed for post discharge needs including - *Post discharge parental anticoagulation - *Warfarin and/or parental anticoagulation education - *Follow up date to check INR post discharge At least 5 days overlap therapy as Inpatient No Meds if any: Prescribed or Continued at Discharge Note: Overlap Therapy is Warfarin and Anticoagulant Meds if any: NOT Prescribed or Continued at Discharge
--- NOTE | 2018-06-15 08:20 | Discharge Summary ---
Visit Information Visit Dates Admission Date: 06/13/18 Discharge Date: 06/15/18 Hospital Course Course Attending Physician: Kasia GUERAR,Rafal Olmos Primary Care Physician: Jean Sanchez MD Hospital Course: HOSPITAL COURSE: 77 year old female with past medical history significant for CLL and asymptomatic paroxysmal atrial fibrillation diagnosed in 09/2016 after routine evaluation for urinary tract infection s/p elective cardioversion in 10/2016 presents with complaints of abdominal bloating epigastric and chest tightness and was brought in by ambulance with rapid atrial fibrillation. The patient's symptoms started night prior to admission with bloating and feeling gaseous. Patient had difficulty describing the exact nature of the pain and denied any exacerbating or relieving factors. She did say that the pain was in her epigastric area radiating up through her chest into jaw and her back. She endorsed chest tightness, nausea, fatigue, and feeling light headed. She denied palpitations, vomiting, diaphoresis, or dyspnea. She slept poorly overnight and her symptoms persisted into this morning. 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 In the ambulance, she was noted to be in rapid atrial fibrillation and was given 10mg of IV metoprolol. The patient last saw Dr. Camacho on 05/25/18. He had increased her cardizem from 120mg to 240mg at that time and recommended cardioversion. She denied any history of previous heart attack. She says her thyroid function has always been normal. She denied a history of high blood pressure. She drinks 2 cups of tea daily and this has not changed recently and denies alcohol intake. She states a WBC in the 20,000 range is typical for her CLL. The patient states she has not had any fevers, chills, sick contacts, cough, sore throat, diarrhea, or dysuria, suggestive of infection. Review of systems is only notable other than previously mentioned for left knee pain from osteoarthritis. EMERGENCY DEPARTMENT: Vitals:98.1, 119, 20, 166/98, 97% RA EKG: Atrial fibrillation with rapid ventricular rate varying between 73 and 106, average of 115. Frequent ectopy and PVCs. As compared to prior study from 07/2016, there is interval change to atrial for ablation from prior sinus rhythm. No obvious ischemic changes. Troponin: Negative X3 Labs: WBC: 25.9, 29.5, 23.5 prior to discharge CXR: 1. Enlarged cardiac mediastinal silhouette and ectatic aorta. 2. Slight thickening of the central airways. Findings may be related to reactive airways disease or bronchitis. 3. No focal pneumonia. TELEMETRY ADMISSION: PROBLEM LIST: 1. Atrial Fibrillation with RVR 2. Atypical Chest Pain 3. CLL ATRIAL FIBRILLATION WITH RVR Patient admitted for rates between 100-130s. Monitored continuously on the telemetry unit. Cardiology was consulted. Patient was continued on cardizem 240mg and anticoagulation of Eliquis 5mg BID. Metoprolol 50mg BID was started prior to be tapered down to 25mg BID for discharge. Patient was discussed for a cardioversion during her stay. Transesophageal echocardiogram showed no evidence of intracardiac thrombus and Dr. Rose of cardiology proceeded with cardioversion to sinus rhythm using 150 J of synchronized energy 1. Advised to continue on Eliquis without interruption, beta-ian and calcium channel ian. Patient was put on amiodarone 200 mg p.o. daily and advised to follow- up in office within 1 week of discharge. Atypical Chest Pain Patient presented with atypical chest discomfort and epigastric discomfort. Serial troponins/EKG were ordered to rule out ACS. No evidence of ischemia demonstrated. Cardiology followed patient with continuous monitoring on telemetry. Advised to follow up outpatient upon discharge. CLL Patients CLL diagnosis is stable. WBCs range in 20,000 range. Patient did not demonstrate any fevers, chills or significant signs of infection during her admission. Code Status: Full Code DVT [id number] Diet: Heart Healthy Allergies: Coded Allergies: No Known Allergies (06/13/18) Disposition Summary Disposition Principal Diagnosis: Atrial Fibrillation with RVR Additional Diagnosis: N/A Discharge Disposition: home or self care Discharge Instructions General Discharge Information Code Status: Full Code Patient's Diet: Heart Healthy Patient's Activity: As tolerated Follow-Up Instructions/Appts: Please follow up with PCP within 1 week of discharge. Follow up with Cardiology on discharge. Continue Amiodarone daily and Metoprolol 25mg BID. Return with worsening chest pain, palpitations, shortness of breath, nausea or vomiting. Medications at Discharge Discharge Medications: Continue taking these medications: Apixaban (Eliquis) 5 MG TABLET 1 Tablet ORAL TWICE DAILY Qty = 180 Comments: Last Taken: 06/15/18 Time: 10:00 AM Diltiazem HCl (Diltiazem 24HR ER) 240 MG CAP.ER.24H 1 Capsule ORAL DAILY Qty = 90 Comments: Last Taken: 06/15/18 Time: 10:00 AM Latanoprost (Latanoprost) 0.005 % DROPS 1 Drop In the eye Every night Qty = 8 Comments: NOT GIVEN WHILE IN HOSPITAL Cholecalciferol (Vitamin D3) 1,000 UNIT TABLET 1 Tablet ORAL DAILY Comments: NOT GIVEN WHILE IN HOSPITAL Start taking the following new medications: Amiodarone (Cordarone) 200 MG TAB 1 Tablet ORAL DAILY Qty = 30 No Refills Instructions: . Comments: Last Taken: 06/15/18 Time: 10:00 AM Metoprolol Tartrate (Metoprolol Tartrate) 25 MG TABLET 1 Tablet ORAL TWICE DAILY Qty = 60 No Refills Instructions: . Comments: Last Taken: 06/15/18 Time: 10:00 AM Copies To: Daniel GUERRA,Jean Dominguez; Rose GUERRA,Nathaniel; Doug GUERRA,Cesar
[2018-06-15 08:40] LABS: ABSOLUTE BASOPHIL COUNT 0.1 /CUMM (0.0-0.2); ABSOLUTE EOSINOPHIL COUNT 0.2 /CUMM (0.0-0.7); ABSOLUTE GRANULOCYTE CT 6.8 /CUMM (1.4-6.5); ABSOLUTE LYMPH COUNT 14.9 /CUMM (1.2-3.4); ABSOLUTE MONOCYTE COUNT 1.7 /CUMM (0.10-0.60); BASOPHIL % 0.2 % (0.0-2.0); EOSINOPHIL % 0.8 % (0-5); GRANULOCYTE % 28.9 % (42.2-75.2); MEAN CORPUSCULAR HGB 29.6 PG (27.0-31.0); MEAN CORPUSCULAR HGB CONC 32.6 G/DL (33.0-37.0); MEAN CORPUSCULAR VOLUME 90.9 FL (81.0-99.0); MEAN PLATELET VOLUME 10.4 FL (7.4-10.4); PLATELET COUNT 251 /CUMM (130-400); RBC DISTRIBUTION WIDTH 13.6 % (11.5-14.5); RED BLOOD CELL CT 4.73 /CUMM (4.20-5.40); WHITE BLOOD CELL COUNT 23.7 /CUMM (4.8-10.8)
--- NOTE | 2018-06-15 09:36 | Proc Note Cardiology ---
Cardiology Procedure Procedure Date: 06/15/18 Cardiology Procedure(s): electrical cardioversion, LISSA Pre-Operative Diagnosis: Atrial fibrillation Post-Operative Diagnosis: Sinus rhythm Estimated Blood Loss: none Anesthesia: Propofol per anesthesia Procedure Findings: Refer to transesophageal echocardiogram report for details. The patient was successfully cardioverted from atrial fibrillation to sinus rhythm using 150 J of synchronized energy 1. Pritesh Rose MD [facility]
--- NOTE | 2018-06-15 09:41 | PN- Cardiology ---
Subjective Subjective: The patient is doing well today. I performed a successful LISSA/cardioversion earlier without any complication. Objective Vital Signs and I&Os Vital Signs Date Time Temp Pulse Resp B/P B/P Pulse O2 O2 Flow FiO2 Mean Ox Delivery Rate 06/15 0628 98.4 53 20 128/70 96 Room Air 06/14 2224 98.5 100 20 138/88 94 06/14 2043 62 122/72 06/14 2042 62 122/72 06/14 1452 98.7 62 18 122/72 96 Room Air 06/14 1334 98.0 61 18 104/49 97 Room Air 06/14 1209 97.9 82 20 136/56 Intake & Output 06/15 1600 06/15 0806/15 0000 06/14 0000 Intake Total 400 Output Total Balance 400 Intake, Oral 400 Patient 177 lb 180 lb Weight Physical Exam: General: no apparent distress. Alert. Eyes: No obvious scleral icterus. HEENT: No jugular venous distention or abnormal jugular venous pulsations. Cardiovascular: Normal intensity S1/S2. 1 out of 6 systolic murmur Respiratory: Lungs clear to auscultation bilaterally. Abdomen: Soft, nontender with no guarding or rebound tenderness. Musculoskeletal: No clubbing or cyanosis noted Skin: warm Neurologic: No gross focal deficits noted. Current Medications: Current Medications Sig/Harjinder Start time Last Medication Dose Route Stop Time Status Admin Acetaminophen 650 MG Q6P PRN 06/13 1545 AC PO Amiodarone HCl 200 MG DAILY 06/16 0900 AC PO Amiodarone HCl 200 MG BID 06/14 1045 AC 06/14 PO 06/15 Apixaban 5 MG BID 06/13 2100 AC 06/14 PO 2040 Diltiazem HCl 240 MG DAILY 06/14 0900 AC 06/14 PO 0920 Lidocaine 0 .STK-MED ONE 06/15 0802 DC TOP Metoprolol Tartrate 25 MG BID 06/14 2100 AC 06/14 PO 2041 Metoprolol Tartrate 50 MG BID 06/13 2100 DC 06/14 PO 09 Morphine Sulfate 2 MG Q4P PRN 06/13 1545 AC IV Ondansetron HCl 4 MG Q6P PRN 06/13 1615 AC 06/13 IV 2034 Results Last 48 Hrs of Labs/Mics: Laboratory Tests 06/15/18 0658: Anion Gap 12, Estimated GFR > 60, BUN/Creatinine Ratio 48.6 H, CBC w Diff MAN DIFF ORDERED, RBC 4.73, MCV 90.9, MCH 29.6, MCHC 32.6 L, RDW 13.6, MPV 10.4, Gran % 28.9 L, Lymphocytes % 62.9 H, Monocytes % 7.2, Eosinophils % 0.8, Basophils % 0.2, Absolute Granulocytes 6.8 H, Segmented Neutrophils 18 L, Absolute Lymphocytes 14.9 H, Lymphocytes 76 H, Monocytes 5, Absolute Monocytes 1.7 H, Eosinophils 1, Absolute Eosinophils 0.2, Absolute Basophils 0.1, Platelet Estimate VERIFIED BY SMEAR, Normocytic RBCs VERIFIED, Normochromic RBCs VERIFIED 06/14/18 0555: Anion Gap 9, Estimated GFR > 60, BUN/Creatinine Ratio 40.0 H, Magnesium 2.2, Troponin I < 0.01, TSH &T3 &Free T4 Intrp 0.899, CBC w Diff MAN DIFF ORDERED, RBC 4.70, MCV 91.6, MCH 30.2, MCHC 32.9 L, RDW 13.3, MPV 9.6, Gran % 38.8 L, Lymphocytes % 52.4 H, Monocytes % 7.8, Eosinophils % 0.3, Basophils % 0.7, Absolute Granulocytes 11.5 H, Segmented Neutrophils 31 L, Band Neutrophils 1, Absolute Lymphocytes 15.5 H, Lymphocytes 62 H, Monocytes 6, Absolute Monocytes 2.3 H, Absolute Eosinophils 0.1, Absolute Basophils 0.2, Platelet Estimate ADEQUATE, Hypochromic-Microcytic 1+, Ovalocytes FEW, Stomatocytes FEW, Fld Total RBCs Counted 100 06/13/18 2107: Troponin I < 0.01 06/13/18 1214: Anion Gap 17 H, Estimated GFR > 60, BUN/Creatinine Ratio 43.3 H, Glucose 125 H, Calcium 10.7 H, Total Bilirubin 0.7, AST 26, ALT 25, Alkaline Phosphatase 100, Troponin I < 0.01, Total Protein 7.1, Albumin 4.8, Globulin 2.3, Albumin/ Globulin Ratio 2.1, CBC w Diff MAN DIFF ORDERED, RBC 5.25, MCV 89.4, MCH 29.9, MCHC 33.4, RDW 13.4, MPV 10.0, Gran % 56.1, Lymphocytes % 37.3, Monocytes % 5.7, Eosinophils % 0.1, Basophils % 0.8, Absolute Granulocytes 14.5 H, Absolute Lymphocytes 9.7 H, Absolute Monocytes 1.5 H, Absolute Eosinophils 0, Absolute Basophils 0.2, Platelet Estimate ADEQUATE, Normocytic RBCs VERIFIED, Normochromic RBCs VERIFIED 06/13/18 1000: PT 14.0 H, INR 1.28 H, APTT 32 Recent Imaging Studies: Telemetry personally reviewed and showed atrial fibrillation with frequent PVCs prior to the cardioversion Transesophageal echocardiogram showed no evidence of intracardiac thrombus or shunt Assessment/Plan Assessment/Plan 1. Abdominal discomfort now resolved 2. Paroxysmal atrial fibrillation on Eliquis status post successful cardioversion 06/15/2018 3. History of CLL Patient remains hemodynamically stable. Transesophageal echocardiogram showed no evidence of intracardiac thrombus and I proceeded with cardioversion to sinus rhythm using 150 J of synchronized energy 1. Continue on Eliquis without interruption. Continue on the beta-ian and calcium channel ian. Continue amiodarone 200 mg p.o. daily. The patient should follow-up in our office within 1 week of discharge. Pritesh Rose MD [facility] Continue telemetry? No
[2018-06-15 10:15] VITALS: BP 130/70
--- NOTE | 2018-06-15 13:05 | ECHOCARDIOGRAM REPORT ---
ADRIÁN DAVIS Age: 77 : Gender: F 6 Exam Date: 06/15/2018 08:24 Exam Location: ER Ht (in): 66 Wt (lb): 176 BSA: 1.95 BP: 136 / 56 Ordering Physician: Salas Nicole MD Referring Physician: Salas Nicole MD Technologist: Mehdi Nicholas RDCS Room Number: 4 Indications: Cardiac arrhythmia, unspecified Rhythm: Technical Quality: Excellent Medications Propofol administered by Anesthesiology. Ease of Transducer Insertion No Difficulty Complications None. Technical Difficulty None. FINDINGS Left Ventricle Normal global left ventricular size, wall thickness, systolic function with no obvious regional wall motion abnormalities. Left ventricular ejection fraction is estimated at 50-55 %. Right Ventricle Normal right ventricular size and function. Right Atrium Mild right atrial dilatation. Left Atrium Mild to moderate left atrial dilatation. LA Appendage No thrombus detected in the left atrial appendage. IA Septum No shunt by Doppler or Bubble study. Mitral Valve Structurally normal mitral valve. [id number] mitral regurgitation. Aortic Valve No aortic stenosis. Trileaflet aortic valve. Trace aortic regurgitation. Tricuspid Valve Structurally normal tricuspid valve. [id number] tricuspid regurgitation. Unable to estimate the right ventricular systolic pressure. Pulmonic Valve Pulmonic valve not well visualized, grossly normal. Trace pulmonic regurgitation. Pericardium No pericardial effusion. Great Vessels Normal size aortic root. CONCLUSIONS Normal global left ventricular size, wall thickness, systolic function with no obvious regional wall motion abnormalities. Left ventricular ejection fraction is estimated at 50-55 %. Mild right atrial dilatation. Mild to moderate left atrial dilatation. No thrombus detected in the left atrial appendage. No shunt by Doppler or Bubble study. [id number] mitral regurgitation. [id number] tricuspid regurgitation. Following the LISSA the patient was successfully cardioverted from atrial fibrillation to sinus rhythm using 150 joules of synchronized energy x1Balbina Rose M.D. (Electronically Signed) Final Date: 15 June 2018 13:00 MEASUREMENTS (Male / Female) Normal Values
== END 2018-06-15 15:15 | DRG 309 ==
LOC: ERH 11:28 → 1NO 14:27 → ERHI 14:27 → ENRESERV 06-14 12:36 → ENTRNSPT 06-14 14:20 → EDTRNSPT 06-14 14:33 → EDTRNSPTSTS 06-14 14:33 → 1NO 06-14 14:37 → CMPTRNSPT 06-14 14:53 → ENPENDDIS 06-15 14:02 → 1NO 06-15 15:15
PROVIDERS: Physical Medicine & Rehabilitation Pain Medicine; Preventive Medicine Public Health & General Preventive Medicine; Student in an Organized Health Care Education/Training Program
PROC: 5A2204Z Restoration of Cardiac Rhythm, Single (ICD-10-PCS; principal; 2018-06-15)
PROC: B246ZZ4 Ultrasonography of Right and Left Heart, Transesophageal (ICD-10-PCS; 2018-06-15)
DX: I48.91 Unspecified atrial fibrillation (principal); C91.10 Chronic lymphocytic leukemia of B-cell type not having achieved remission; Z79.01 Long term (current) use of anticoagulants; M19.90 Unspecified osteoarthritis, unspecified site; H40.9 Unspecified glaucoma
CPT/HCPCS: 1NSP; ERO; 36592; 71046; 82436; 93005; 93010; 93325; 96374; J2405